=== PATIENT | male | born 1955 | race Asian ===

== ENCOUNTER 2018-11-01 18:42 | Emergency (ER) | payer BC ==
[~2018-11-01] VITALS: Ht 172.7 cm; Wt 81.6 kg
[2018-11-01 18:53] VITALS: BP_SYST 185
--- NOTE | 2018-11-01 19:45 | NUR ---
Patient to ER bed 06 to gown for evaluation. Side rails up. will assume care of patient
--- NOTE | 2018-11-01 19:50 | NUR ---
Patient accompanied by complaining of intermittent sudden acute left flank pain starting at 1600 worsening. Patient denies any nausea, vomiting or diarrhea. Pain 9/10. No other complaints/injuries per patient or as noted at this time.
[2018-11-01] MEDS ORDERED: NACL 0.9% 1,000 ML IV ONE (19:57)
--- NOTE | 2018-11-01 19:57 | NUR ---
Rimma Jacobson at bedside examining patient.
[2018-11-01] MEDS ORDERED: KETOROLAC TROMETHAMINE 30 MG VIAL IVP ONE (20:00)
[2018-11-01] MEDS ORDERED: DIPHENHYDRAMINE INJ 50 MG/ML VIAL IVP ONE (20:00)
--- NOTE | 2018-11-01 20:04 | NUR ---
# 20 gauge angiocath placed to LAC. Use of asceptic technique. Opsite placed over site. Blood return noted. Blood for lab drawn from site. Flushed with 10 cc of normal saline. No evidence of infiltration noted. Patient tolerated well.
[2018-11-01 20:15] LABS: BASOPHILS % (AUTO) 0.2 % (0.0-2.0); EOSINOPHILS # (AUTO) 0.3 K/uL (0.0-0.4); EOSINOPHILS % (AUTO) 2.4 % (0.0-4.0); HEMATOCRIT 41.8 % (36-54); HEMOGLOBIN 13.5 g/dL (14.0-18.0); LYMPHOCYTES % (AUTO) 8.6 % (20.5-51.5); MEAN CORPUSCULAR HEMOGLOBIN 30 pg (27-31); MEAN CORPUSCULAR HGB CONC 32 % (32-36); MEAN CORPUSCULAR VOLUME 92 fL (79.0-98.0); MONOCYTES # (AUTO) 0.5 K/uL (0.0-1.0); MONOCYTES % (AUTO) 4.5 % (1.7-9.3); NEUTROPHILS % (AUTO) 84.3 % (40.0-70.0); PLATELET COUNT (AUTO) 256 K/uL (130-430); RED BLOOD CELL COUNT(AUTO) 4.53 MIL/uL (4.2-6.2); WHITE BLOOD COUNT (AUTO) 11.8 K/uL (4.8-10.8)
[2018-11-01 20:28] LABS: CALCIUM 9.5 mg/dL (8.4-11.0); CREATININE 1.41 mg/dL (0.55-1.30); POTASSIUM 4.7 mmol/L (3.5-5.1)
[2018-11-01 20:32] LABS: ALBUMIN 4.4 g/dL (3.4-4.8); TOTAL BILIRUBIN 0.9 mg/dL (0.0-1.0)
--- NOTE | 2018-11-01 21:10 | NUR ---
Patient unable to provide urine sample at this time. notified.
--- NOTE | 2018-11-01 21:53 | NUR ---
ER Dr. Damon at bedside re-examining patient.
[2018-11-01] MEDS ORDERED: ONDANSETRON HCL 4 MG/2 ML VIAL IVP ONE (22:15)
[2018-11-01] MEDS ORDERED: MORPHINE 4 MG/ML INJ. SYRINGE IVP ONE (22:15)
--- NOTE | 2018-11-01 22:26 | NUR ---
medicated per md orders. Patient tolerated well. Will continue to monitor.
[2018-11-01 23:22] VITALS: BP_SYST 148
--- NOTE | 2018-11-01 23:22 | NUR ---
Patient given written and verbal discharge instructions and verbalizes understanding. ER MD discussed with patient the results and treatment provided. Patient in stable condition. ID arm band removed. IV catheter removed intact and dressing applied, no active bleeding. Rx of [employer] given. Patient educated on pain management and to follow up with PMD in 2-3 days. Pain Scale 0/10 Opportunity for questions provided and answered. Medication side effect fact sheet provided.
== END 2018-11-01 23:22 | disposition home or self-care (01) ==
LOC: SED 18:42
DX: N20.9 Urinary calculus, unspecified (principal); E11.9 Type 2 diabetes mellitus without complications; R03.0 Elevated blood-pressure reading, without diagnosis of hypertension; Z87.891 Personal history of nicotine dependence
CPT/HCPCS: 36415; 74176; 80053; 85025; 96374; 96375; 99284; J1200; J1885; J2270; J2405; J7030

== ENCOUNTER 2020-07-06 18:52 | Emergency (ER) | payer OTHER, MEDICARE ==
[~2020-07-06] VITALS: Ht 172.7 cm; Wt 85.3 kg
[2020-07-06 18:52] VITALS: BP_SYST 132
[2020-07-06] MEDS ORDERED: METF1000 PO (19:30)
[2020-07-06] MEDS ORDERED: GLU500 PO (19:30)
[2020-07-06] MEDS ORDERED: SIMV40TA2 PO (19:30)
[2020-07-06] MEDS ORDERED: OLME40TA12 PO (19:30)
[2020-07-06] MEDS ORDERED: SITA100T11 PO (19:30)
[2020-07-06 20:19] LABS: BASOPHILS # (AUTO) 0.1 K/uL (0.0-0.2); BASOPHILS % (AUTO) 1.5 % (0.0-2.0); EOSINOPHILS # (AUTO) 0.4 K/uL (0.0-0.4); EOSINOPHILS % (AUTO) 4.8 % (0.0-4.0); HEMATOCRIT 34.4 % (36-54); HEMOGLOBIN 11.3 g/dL (14.0-18.0); LYMPHOCYTES # (AUTO) 0.8 K/uL (1.0-5.5); LYMPHOCYTES % (AUTO) 9.2 % (20.5-51.5); MEAN CORPUSCULAR HEMOGLOBIN 31 pg (27-31); MEAN CORPUSCULAR HGB CONC 33 % (32-36); MEAN CORPUSCULAR VOLUME 94 fL (79.0-98.0); MONOCYTES # (AUTO) 0.4 K/uL (0.0-1.0); MONOCYTES % (AUTO) 4.3 % (1.7-9.3); NEUTROPHILS # (AUTO) 6.9 K/uL (1.8-7.7); NEUTROPHILS % (AUTO) 80.2 % (40.0-70.0); PLATELET COUNT (AUTO) 201 K/uL (130-430); RED BLOOD CELL COUNT(AUTO) 3.68 MIL/uL (4.2-6.2); WHITE BLOOD COUNT (AUTO) 8.6 K/uL (4.8-10.8)
[2020-07-06 20:29] LABS: CALCIUM 8.7 mg/dL (8.4-11.0); CREATININE 1.26 mg/dL (0.55-1.30); POTASSIUM 4.2 mmol/L (3.5-5.1)
[2020-07-06 20:35] LABS: ALBUMIN 3.9 g/dL (3.4-4.8); TOTAL BILIRUBIN 0.7 mg/dL (0.0-1.0)
[2020-07-06] MEDS ORDERED: KETOROLAC TROMETHAMINE 30 MG VIAL IVP ONE (21:00)
[2020-07-06 21:47] VITALS: BP_SYST 132
== END 2020-07-06 21:47 | disposition home or self-care (01) ==
LOC: SED 18:52
DX: N36.8 Other specified disorders of urethra (principal); I10 Essential (primary) hypertension; E11.9 Type 2 diabetes mellitus without complications; E78.00 Pure hypercholesterolemia, unspecified; Z79.899 Other long term (current) drug therapy
CPT/HCPCS: 36415; 74176; 80053; 81002; 85025; 96374; 99284; J1885

== ENCOUNTER 2021-04-17 19:04 | Emergency (ER) | payer OTHER, MEDICARE ==
[~2021-04-17] VITALS: Ht 172.7 cm; Wt 83.0 kg
[~2021-04-17 19:04] MED LIST: GLU500 PO; METF1000 PO; OLME40TA12 PO; SIMV40TA2 PO; SITA100T11 PO
[2021-04-17 19:18] VITALS: BP_SYST 109
[2021-04-17 19:45] VITALS: BP_SYST 119
[2021-04-17] MEDS ORDERED: NACL 0.9% 1,000 ML IV ONE (19:45)
[2021-04-17] MEDS ORDERED: KETOROLAC TROMETHAMINE 30 MG VIAL IVP ONE (19:45)
[2021-04-17 20:12] LABS: BILIRUBIN,URINE NEGATIVE (NEGATIVE); BLOOD, URINE NEGATIVE (NEGATIVE); COLOR,URINE YELLOW (YELLOW); GLUCOSE,URINE NEGATIVE (NEGATIVE); KETONES,URINE NEGATIVE (NEGATIVE); LEUKOCYTE ESTERASE ,URINE NEGATIVE (NEGATIVE); NITRITE, URINE NEGATIVE (NEGATIVE); PROTEIN URINE TRACE (NEGATIVE); UROBILINOGEN,URINE 0.2 (0.2-1.0)
[2021-04-17 20:17] LABS: BASOPHILS # (AUTO) 0.2 K/uL (0.0-0.2); BASOPHILS % (AUTO) 1.2 % (0.0-2.0); EOSINOPHILS # (AUTO) 0.1 K/uL (0.0-0.4); EOSINOPHILS % (AUTO) 0.5 % (0.0-4.0); HEMATOCRIT 28.9 % (36-54); HEMOGLOBIN 10.2 g/dL (14.0-18.0); LYMPHOCYTES # (AUTO) 0.5 K/uL (1.0-5.5); LYMPHOCYTES % (AUTO) 3.8 % (20.5-51.5); MEAN CORPUSCULAR HEMOGLOBIN 32 pg (27-31); MEAN CORPUSCULAR HGB CONC 35 % (32-36); MEAN CORPUSCULAR VOLUME 90 fL (79.0-98.0); MONOCYTES # (AUTO) 0.8 K/uL (0.0-1.0); MONOCYTES % (AUTO) 6.5 % (1.7-9.3); NEUTROPHILS # (AUTO) 11.2 K/uL (1.8-7.7); PLATELET COUNT (AUTO) 181 K/uL (130-430); RED BLOOD CELL COUNT(AUTO) 3.23 MIL/uL (4.2-6.2); RED CELL DISTRIBUTION WIDTH 13.2 % (9.0-15.0); WHITE BLOOD COUNT (AUTO) 12.8 K/uL (4.8-10.8)
[2021-04-17 20:18] LABS: CLARITY/URINE SLIGHTLY HAZY (CLEAR)
[2021-04-17 20:31] LABS: RBC,URINE 0-3 /HPF (0-3)
[2021-04-17 20:32] LABS: BACTERIA,URINE FEW /HPF (None Seen); COARSE GRANULAR CASTS,URINE 0-10 /LPF (None Seen); MUCUS,URINE 2+ /LPF (None Seen); OTHER CASTS, URINE WBC CASTS 1+ /LPF (None Seen)
[2021-04-17 20:36] LABS: CALCIUM 8.1 mg/dL (8.4-11.0); CREATININE 2.4 mg/dL (0.55-1.30); POTASSIUM 4.7 mmol/L (3.5-5.1)
[2021-04-17 20:41] LABS: ALBUMIN 3.8 g/dL (3.4-4.8); TOTAL BILIRUBIN 1.3 mg/dL (0.0-1.0)
[2021-04-17] MEDS ORDERED: fentaNYL CITRATE/PF 100 MCG/2 ML AMP IVP ONE (21:15)
[2021-04-17] MEDS ORDERED: TAMS-11 PO (21:22)
[2021-04-17] MEDS ORDERED: HYDR-3917 PO (21:22)
[2021-04-17] MEDS ORDERED: HYDROcodone/ACETAMIN 5-325 MG TAB (NORCO/ VICODIN) PO ONE (21:30)
[2021-04-17] MEDS ORDERED: ONDANSETRON HCL 4 MG/2 ML VIAL ONE (21:37)
[2021-04-17] MEDS ORDERED: ONDANSETRON HCL 4 MG/2 ML VIAL IVP ONE (21:45)
== END 2021-04-17 21:47 | disposition home or self-care (01) ==
LOC: SED 19:04
DX: N17.9 Acute kidney failure, unspecified (principal); K57.90 Diverticulosis of intestine, part unspecified, without perforation or abscess without bleeding; N20.0 Calculus of kidney; N13.9 Obstructive and reflux uropathy, unspecified; I10 Essential (primary) hypertension; E11.9 Type 2 diabetes mellitus without complications; Z79.84 Long term (current) use of oral hypoglycemic drugs; Z79.899 Other long term (current) drug therapy
CPT/HCPCS: 36415; 74176; 76376; 80053; 81000; 82962; 85025; 96361; 96374; 96375; 99284; J1885; J2405; J7030

== ENCOUNTER 2021-08-26 09:02 | Outpatient (CLI) | payer OTHER, MEDICARE ==
[~2021-08-26 09:02] MED LIST changes: +HYDR-3917 PO; +TAMS-11 PO
== END 2021-08-26 20:33 | disposition home or self-care (01) ==
LOC: SRD 09:02
PROVIDERS: ATTEND Urology
DX: N20.0 Calculus of kidney (principal)
CPT/HCPCS: 76770